=== PATIENT | female | born 1995 | race African-American/Black ===

== ENCOUNTER 2019-08-11 20:48 | Emergency (ER) | payer MEDICAID ==
[~2019-08-11] VITALS: Ht 157.5 cm; Wt 48.0 kg
[2019-08-11] MEDS ORDERED: IBUPROFEN 800MG TABLET PO ONE (23:15)
[2019-08-12 01:09] VITALS: BP 121/61
== END 2019-08-12 01:10 | disposition home or self-care (01) ==
LOC: ER 20:48
DX: S06.0X9A Concussion with loss of consciousness of unspecified duration, initial encounter (principal); S39.012A Strain of muscle, fascia and tendon of lower back, initial encounter; S16.1XXA Strain of muscle, fascia and tendon at neck level, initial encounter; V89.2XXA Person injured in unspecified motor-vehicle accident, traffic, initial encounter; Y93.89 Activity, other specified; Y92.89 Other specified places as the place of occurrence of the external cause; Y99.8 Other external cause status
CPT/HCPCS: 72100; 81025; 99283